=== PATIENT | male | born 1985 ===

== ENCOUNTER 2018-03-04 15:53 | Emergency (ER) | payer OTHER ==
[~2018-03-04] VITALS: Ht 172.7 cm; Wt 74.6 kg
[2018-03-04 16:08] VITALS: BP 118/84
== END 2018-03-04 17:50 | disposition home or self-care (01) ==
LOC: ER 15:54
DX: Z77.098 Contact with and (suspected) exposure to other hazardous, chiefly nonmedicinal, chemicals (principal); R11.0 Nausea
CPT/HCPCS: 99281